=== PATIENT | female | born 1945 | race Caucasian/White ===

== ENCOUNTER 2025-02-21 12:20 | Outpatient (REF) | payer MEDICARE, SELFPAY ==
[2025-02-21 14:26] LABS: Vitamin B12 528 pg/mL (200-900)
--- OUTSIDE RECORDS SUMMARY | 2025-02-21 14:37 | XMS_ITS | Clinical Summary ---
Author Organization [facility] Address [address] [place] [address] Phone Care Team Providers Care Reed Repairer Name Role Phone Akanksha Florian MD Primary Care Provider [phone] Allergies Active Allergy Reactions Criticality Noted Date Comments Codeine High 12/02/2005 Nickel 06/08/2017 Sulfa (Sulfonamide Antibiotics) High 11/2005 Medications CYANOCOBALAMIN, VITAMIN B-12, ORAL Take by mouth. Active esomeprazole magnesium (NEXIUM ORAL) Take by mouth. Active OMEGA-3 FATTY ACIDS ORAL Take by mouth. Active rosuvastatin calcium (CRESTOR ORAL) Take 40 mg by mouth 1 (one) time each day. Active acetaminophen (TYLENOL) 325 mg tablet Take 2 tablets (650 mg total) by mouth every 6 (six) hours as needed for pain. Active cholecalciferol (VITAMIN D-3) 25 mcg (1,000 unit) tablet Take 1 tablet (1,000 Units total) by mouth daily. Active gabapentin (NEURONTIN) 300 mg capsule Take 1 capsule (300 mg total) by mouth 2 (two) times a day. 9 Active hydroCHLOROthia zide (HYDRODIURIL) 25 mg tablet Take 1 tablet (25 mg total) by mouth daily. Active levothyroxine (SYNTHROID, LEVOTHROID) 50 mcg tablet 8 Active coenzyme Q-10 10 mg capsule Take 1 tablet by mouth. Active memantine (NAMENDA) 10 mg tablet Take 1 tablet (10 mg total) by mouth 1 (one) time each day. Active celecoxib (CeleBREX) 100 mg capsule Take 1 capsule (100 mg total) by mouth 1 (one) time each day if needed for moderate pain. 90 capsule 1 5 Active celecoxib (CeleBREX) 100 mg capsule Take 1 capsule (100 mg total) by mouth 1 (one) time each day if needed for moderate pain. 8 01/31/20 25 Discontinu ed(Reorder ) Active Problems Problem Noted Date Diagnosed Date Primary osteoarthritis of both feet 01/14/2018 Primary osteoarthritis of both hands 01/14/2018 Hypothyroid 10/15/2017 Assessment & Plan (11/08/2024 5:52 PM EST): Orders: Thyroid stimulating hormone with reflex to free t4 and free t3; Future Malignant neoplasm of transv erse colon (CMS/HCC V24, CMS/HCC V28) 12/10/2015 Overview (01/04/2024): Overview: Colonoscopy and biopsy 12/10/2015. Adenocarcinoma, low-grade. (Desires small- volume bowel prep. Difficult sigmoid colon, consider monitored anesthesia care at the hospital.) Colonoscopy 03/10/2017@[facility]: Diminutive tubular adenomas ? 3 , next colonoscopy 3 years. Hip osteoarthritis 12/20/2012 Obesity 02/19/2011 Essential hypertension 08/08/2009 Allergic rhinitis 01/20/2006 Overview (01/04/2024): Overview: Desensitization shots in past Diffuse cystic mastopathy 01/20/2006 Overview (01/04/2024): Overview: Biopsy x 2 Pure hypercholesterolemia 12/02/2005 Assessment & Plan (11/08/2024 5:52 PM EST): Orders: Homocysteine, total; Future Thyroid stimulating hormone with reflex to free t4 and free t3; Future Hemoglobin A1c; Future Sensorineural hearing loss 12/02/2005 Overview (01/04/2024): Overview: IMO update Overview: IMO update Thyroiditis 12/02/2005 Encounters Date Type Department Care Team Description 01/05/2025 9:00 AM EST Office Visit Adult Medicine [address] [phone] Akanksha Florian MD Moderate late onset Alzheimer's dementia without behavioral disturbance, psychotic disturbance, mood disturbance, or anxiety (CMS/HCC V24, CMS/HCC V28) (Primary Dx); Essential hypertension; Pure hypercholesterolemia; Hypothyroidism, unspecified type; Vitamin D deficiency 12/27/2024 Telephone Adult [address] [phone] Akanksha Florian MD Medication; Appointment 11/24/2024 Telephone Adult [address] [phone] Shawn Henderson NP Referral from Last 3 Months Immunizations Name Administration Dates Next Due Cybits SARS-CoV-2 COVID-19, mRNA, LNP-S, preservative free 06/28/2021,01/01/2021,12/11/2020 Surgical History Surgery Date Site/Laterality Comments PARTIAL HYSTERECTOMY 1987 PROCEDURE: AL SUPRACERVICAL ABDL HYSTER W/WO RMVL TUBE OVARY; COMMENT: has ovaries OTHER SURGICAL HISTORY 1989 PROCEDURE: DECOMPRESS DISC RF LUMBAR; COMMENT: L5-S1, Dr. Miramontes x 2; 1989 and 1990 OTHER SURGICAL HISTORY 11/2001 PROCEDURE: BREAST MASS CORE BIOPSY SPCMN PATHOLGY EXAM; COMMENT: LEFT COLONOSCOPY 05/11/2005 PROCEDURE: HISTORICAL COLONOSCOPY; COMMENT: normal. BREAST LUMPECTOMY 2009 PROCEDURE: ---- BREAST LUMP BIOPSY ----; COMMENT: BENIGN COLONOSCOPY 12/10/2015 PROCEDURE: HISTORICAL COLONOSCOPY; COMMENT: Low-grade adenocarcinoma proximal transverse colon. COLONOSCOPY 03/10/2017 PROCEDURE: HISTORICAL COLONOSCOPY; COMMENT: Dr. [email or web address]; diminutive tubular adenoma ? 3 , next colonoscopy 3 years. TOTAL KNEE ARTHROPLASTY Left PROCEDURE: AL ARTHRP KNE CONDYLE&PLATU MEDIAL&LAT COMPARTMENTS OTHER SURGICAL HISTORY Right PROCEDURE: AL ARTHRP ACETBLR/PROX FEM PROSTC AGRFT/ALGRFT BREAST BIOPSY 1989 Bilateral PROCEDURE: BX BREAST; PERC NEEDLE CORE W/IMAG GUID; COMMENT: x6-7 BREAST SURGERY 1989 Bilateral PROCEDURE: AL UNLISTED PROCEDURE BREAST BOWEL RESECTION 01/16/2016 PROCEDURE: HISTORICAL BOWEL RESECTION; COMMENT: right hemicolectomy COLONOSCOPY 05/10/2020 PROCEDURE: HISTORICAL COLONOSCOPY; COMMENT: Diverticulosis, otherwise negative/incomplete to the sigmoid colon. UPPER GASTROINTESTINAL ENDOSCOPY 05/10/2020 PROCEDURE: AL UPPER GI ENDOSCOPY PERFORMED; COMMENT: Rico esophagitis, biopsies: rico. OTHER SURGICAL HISTORY 06/05/2020 PROCEDURE: COLOREC CANC SCRN,BARIUM ENEMA; COMMENT: negative. Medical History Medical History Date Comments Esophageal reflux DX:Esophageal reflux Pure hypercholesterolemia DX:Pur e hypercholesterolemia Thyroiditis, unspecified DX:Thyr oiditis, unspecified Sensorineural hearing loss, unspecified DX:Sensorineural hearing los s, unspecified Diffuse cystic mastopathy 01/20/2006 DX:Dif fuse cystic mastopathy; COMMENT: Biopsy x 2 Allergic rhinitis, cause unspecified 01/20/2006 DX:Allergic rhinitis, cause unspecified; COMMENT: Desensitization shots in past Lumbago 09/02/2006 DX:Lumbago Hip osteoarthritis DX:Hip osteoa rthritis Diverticulosis 12/10/2015 DX:Diverticulosi s; COMMENT: Incidental finding at colonoscopy 12/10/2015. Iron deficiency anemia 02/06/2016 DX:Iron d eficiency anemia Personal history of colonic polyps 03/31/2017 DX:Personal history of colonic polyps; COMMENT: Colonoscopy 03/10/2017: Diminutive tubular adenomas ? 3 , next colonoscopy 2019. History of colonoscopy 03/31/2017 DX:Histor y of colonoscopy; COMMENT: Difficult sigmoid colon, needs monitored anesthesia care. Tubular adenoma 04/05/2017 DX:Tubular adeno ma; COMMENT: CN 03/17, repeat 3 years Adenocarcinoma, colon (CMS/H CC V24, CMS/HCC V28) DX:Adenocarcinoma, colon (HC C); COMMENT: stabe IIIc pT3 pN2b; s/p oxaliplatin (3 cycles) and FLOFOX 02/25/2016-08/04/2016 History of malignant neoplas m of large intestine 2015 DX:History of malignant neop lasm of large intestine Candidiasis of esophagus (CM S/HCC V24, CMS/HCC V28) DX:Candidiasis of esophagus (HCC) History of colon cancer in adulthood DX:History of colon cancer in adulthood Family History Medical History Relation Name Comments Diabetes Brother Arthritis Father Arthritis Mother Diabetes Mother Breast cancer Other m cousins 30s 40s Arthritis Sister 1 Diabetes Sister 2 Heart attack Sister 2 Relation Name Status Comments Brother Alive 2 brothers 1 HE ALTHY; 1 MESOTHELIOMA Father (Age 92) VA-CHOL Maternal Grandfather old age Maternal Grandmother old age -GOITER Mother (Age 91) stroke-DM, ARTHRITIS, goiter Other m cousins 30s 40s Paternal Grandfather old age Paternal Grandmother old age Sister 1 Alive 3 sisters 3 Cho lesterol and 1 DM Sister 2 Social History Tobacco Use Types Packs/Day Years Used Date Smoking Tobacco: Former Cigarettes Q uit: 11/01/1987 Smokeless Tobacco: Never Tobacco Cessation:Counseling Given: Not Answered Alcohol Use Standard Drinks/Week Comments Yes 0 (1 standard drink = 0.6 oz pur e alcohol) Comments Unknown Sex and Gender Information Value Date Recorded Sex Assigned at Not on file Legal Sex Female 9:37 AM EST Gender Identity Not on file Sexual Orientation Not on file Obstetrics History Last Filed Vital Signs Vital Sign Reading Time Taken Comments Blood Pressure 136/72 01/05/2025 1:43 PM EST Pulse 78 01/05/2025 9:03 AM EST Temperature 36.3 ??C (97.3 ??F) 01/05/2025 9:03 AM ES T Respiratory Rate 14 01/05/2025 9:03 AM EST Oxygen Saturation 96% 01/05/2025 9:03 AM EST Inhaled Oxygen Concentration - - Weight 74.8 kg (165 lb) 01/05/2025 9:03 AM EST Height 157.5 cm (5' 2 ) 01/05/2025 9:03 AM EST Body Mass Index 30.18 01/05/2025 9:03 AM EST Plan of Treatment Upcoming Encounters Date Type Department Care Team (Late st Contact Info) Description 03/07/2025 2:00 PM EDT Office Visit Adult Medicine [address] [phone] Akanksha Florian MD [address] [place] [address] 04/16/2025 10:15 AM EDT Office Visit [facility] Hematology Oncology [address] [place] [phone] Joseph Devries MD [address] [place] [address] 04/18/2025 2:10 PM EDT Appointment Radiology Department - [address] [phone] Health Maintenance Due Date Last Done Comments Colorectal Cancer Screening: Colonoscopy 10/07/2022 Depression Screening 10/07/2022 Falls Risk Assessment 10/07/2022 Medicare Annual Wellness Visit 10/07/2022 Social Influencers of Health Screening 10/07/2022 DTaP,Tdap,and Td Vaccines (4 - Td or Tdap) 12/20/2022 12/20/2012, 10/07/2006, 11/01/1996 COVID-19 Vaccine ( season) 2024 07/16/2022, 04/15/2022, 06/28/2021, Additional history exists Influenza Vaccine (Season Ended) 2025 08/15/2020, 07/02/2020, 08/25/2019, Additional history exists Hypertension/CHF/CAD Annual BMP Blood Test 11/08/2025 11/08/2024, 03/09/2024 Cholesterol Screening (Lipid Panel) 03/09/2029 03/09/2024 Osteoporosis Screening (Bone Density Screening) 05/02/2031 05/02/2021, 09/02/2017 Pneumococcal Vaccine: 50+ Years Completed 01/18/2016, 01/17/2016, 02/25/2010 Zoster Vaccines Completed 08/01/2020, 05/02, 03/01/2020, Additional history exists RSV Immunization Adult Patients Completed 10/02/2023 HIB Vaccines Aged Out No longer eligi ble based on patient's age to complete this topic HPV Vaccines Aged Out No longer eligi ble based on patient's age to complete this topic Hepatitis A Vaccines Aged Out No long er eligible based on patient's age to complete this topic Hepatitis B Vaccines Aged Out No long er eligible based on patient's age to complete this topic IPV Vaccines Aged Out No longer eligi ble based on patient's age to complete this topic MMR Vaccines Aged Out No longer eligi ble based on patient's age to complete this topic Meningococcal ACWY Vaccine Aged Out N o longer eligible based on patient's age to complete this topic Meningococcal B Vaccine Aged Out No l onger eligible based on patient's age to complete this topic RSV Immunization Patients Under 20 months Aged Out No longer eligible based on patient's age to complete this topic Varicella Vaccines Aged Out No longer eligible based on patient's age to complete this topic Procedures Procedure Name Priority Date/Time Associated Diagnosis Comments COMPREHENSIVE METABOLIC PANEL Routine 11/08/2024 12:46 PM EST Moderate cognitive impairment Memory changes History of colon cancer DXA BONE DENSITY STUDY 1+ SITS AXIAL SKEL Routine 05/02/2021 9:44 AM EDT Age-related osteoporosis without current pathological fracture from Last 3 Months or Most Recently Relevant to Health Maintenance Results * (ABNORMAL) Comprehensive metabolic panel (11/08/2024 12:46 PM EST) Sodium 138 133 - 145 mmol/L LAB CHEMISTRY METHOD 11/08/2024 5:30 PM [facility] Potassium 3.5 3.5 - 5.5 mmol/L LAB CHEMISTRY METHOD 11/08/2024 5:30 PM [facility] Chloride 103 96 - 110 mmol/L LAB CHEMISTRY METHOD 11/08/2024 5:30 PM [facility] CO2 26 21 - 32 mmol/L LAB CHEMISTRY METHOD 11/08/2024 5:30 PM [facility] Anion Gap 9 3 - 11 LAB CHEMISTRY METHOD 11/08/2024 5:30 PM [facility] Glucose 97 70 - 100 mg/dL LAB CHEMISTRY METHOD 11/08/2024 5:30 PM [facility] BUN 21 5 - 25 mg/dL LAB CHEMISTRY METHOD 11/08/2024 5:30 PM [facility] Creatinine 0.90 0.50 - 1.10 mg/dL LAB CHEMISTRY METHOD 11/08/2024 5:30 PM [facility] eGFR 65 >=60 mL/min/1. 73m2 LAB CHEMISTRY METHOD 11/08/2024 5:30 PM [facility] Comment:Calculation based on the??Chronic Kidney Disease Epidemiology Collaboration (CKD-EPI) equation refit??without adjustment for race. BUN/Creatinine Ratio 23.3 LAB CHEMISTRY METHOD 11/08/2024 5:30 PM [facility] Calcium 9.6 8.5 - 10.5 mg/dL LAB CHEMISTRY METHOD 11/08/2024 5:30 PM [facility] AST (SGOT) 31 10 - 42 unit/L LAB CHEMISTRY METHOD 11/08/2024 5:30 PM [facility] ALT (SGPT) 36 10 - 60 unit/L LAB CHEMISTRY METHOD 11/08/2024 5:30 PM [facility] Alkaline Phosphatase 130(H) 42 - 121 unit/L LAB CHEMISTRY METHOD 11/08/2024 5:30 PM [facility] Total Protein 7.3 6.0 - 8.0 g/dL LAB CHEMISTRY METHOD 11/08/2024 5:30 PM [facility] Albumin 4.3 3.2 - 5.0 g/dL LAB CHEMISTRY METHOD 11/08/2024 5:30 PM [facility] Total Bilirubin 0.8 0.0 - 1.4 mg/dL LAB CHEMISTRY METHOD 11/08/2024 5:30 PM [facility] Blood Venous blood specimen / Unknown Venipuncture / Unknown 11/08/2024 12:46 PM EST 11/08/2024 12:46 PM EST us Shawn Henderson NP LAB BLOOD ORDERABLES Final R esult [facility] [address] [place] [address], * DXA BONE DENSITY STUDY Mario+ FABIO RENE (05/02/2021 9:44 AM EDT) Anatomical Region Laterality Modality Bone Densitometr y 11/06/2020 5:57 PM EST Narrative 05/02/2021 5:08 PM EDT Clinical history: osteoporosis Scans of the lumbar spine and hips were performed on a [employer]ision fan beam bone densitometer. ? Bone mineral density measurements and associated T and Z scores respectively are as follows: Lumbar Spine: L1-L4 BMD: 1.032 g/cm2 ? T-Score: -0.1 ? Z-Score: 2.3 Compared with the prior study dated 09/02/2017, the BMD reading has increased which is statistically significant Left Proximal Femur: Neck BMD: 0.593 g/cm2 ? T-Score: -2.3 ?? Z-Score: -0.2 Total BMD: 0.742 g/cm2 ? T-Score: -1.6 ?Z-Score: 0.2 Compared with the prior study the mean BMD reading in the total left hip has increased which is not statistically significant Compared with standards for the young adult, lowest measured bone density places the patient in the W.H.O. osteopenic range. FRAX 10 year probability of major osteoporotic fracture: 15% FRAX 10 year probability of hip fracture: 4.2% IMPRESSION: IMPRESSION: Osteopenia.. . ?? The NOF guidelines recommend that FDA approved medical therapies be considered in postmenopausal women and men age >50 years with a: i. Hip or vertebral (clinical or morphometric) fracture ii. T score of < -2.5 at the spine or hip iii. 10 year fracture probability by FRAX of >3% for hip fracture, or >20% for major osteoporotic fracture PLEASE NOTE: ?? W.H.O. classification is based on lowest measured density at the spine, femoral neck, or total hip.This classification has prognostic significance when applied to post menopausal women and older men. 1) ??The World Health Organization defines low BMD as follows: ?T-score ? Normal ? at or > -1 Osteopenia ? < -1 and ??> - 2.5 Osteoporosis ? at or < -2.5 without fractures Established osteoporosis ? < -2.5 with fractures Procedure Note Adilene Phoenix MD - 11/05/2022 Clinical history: osteoporosis Scans of the lumbar spine and hips were performed on a [employer]/Z[employer]isionfan beam bone densitometer. Bone mineral density measurements and associated T and Z scoresrespectively are as follows: Lumbar Spine: L1-L4 BMD: 1.032 g/cm2 T-Score: -0.1 Z-Score: 2.3 Compared with the prior study dated 09/02/2017, the BMD reading hasincreased which is statistically significant Left Proximal Femur: Neck BMD: 0.593 g/cm2 T-Score: -2.3 Z-Score: -0.2 Total BMD: 0.742 g/cm2 T-Score: -1.6 Z-Score: 0.2 Compared with the prior study the mean BMD reading in the total left hiphas increased which is not statistically significant Compared with standards for the young adult, lowest measured bone densityplaces the patient in the W.H.O. osteopenic range. FRAX 10 year probability of major osteoporotic fracture: 15% FRAX 10 year probability of hip fracture: 4.2% IMPRESSION: IMPRESSION: Osteopenia.. . The NOF guidelines recommend that FDA approved medical therapies beconsidered in postmenopausal women and men age >50 years with a: i. Hip or vertebral (clinical or morphometric) fracture ii. T score of < -2.5 at the spine or hip iii. 10 year fracture probability by FRAX of >3% for hip fracture, or >20%for major osteoporotic fracture PLEASE NOTE: W.H.O. classification is based on lowest measured density at the spine,femoral neck, or total hip.This classification has prognostic significance when applied to postmenopausal women and older men. 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 Health Care Decision (hx) 01/21/2016 AD APPIAH DIRECTIVE Health Care Decision (hx) 01/21/2016 AD APPIAH DIRECTIVE Health Care Decision (hx) 01/21/2016 AD APPIAH DIRECTIVE Health Care Decision (hx) 01/21/2016 AD APPIAH DIRECTIVE Health Care Decision (hx) 01/21/2016 AD APPIAH DIRECTIVE Health Care Decision (hx) 01/21/2016 AD APPIAH DIRECTIVE Health Care Decision (hx) 01/21/2016 AD APPIAH DIRECTIVE Health Care Decision (hx) 01/21/2016 AD APPIAH DIRECTIVE Health Care Decision (hx) 01/21/2016 AD APPIAH DIRECTIVE Health Care Decision (hx) 01/21/2016 AD APPIAH DIRECTIVE Health Care Decision (hx) 01/21/2016 AD APPIAH DIRECTIVE Health Care Decision (hx) 01/21/2016 AD APPIAH DIRECTIVE Health Care Decision (hx) 01/16/2016 AD APPIAH DIRECTIVE Health Care Decision (hx) 01/16/2016 AD APPIAH DIRECTIVE Health Care Decision (hx) 01/16/2016 AD APPIAH DIRECTIVE Health Care Decision (hx) 01/16/2016 AD APPIAH DIRECTIVE Health Care Decision (hx) 01/16/2016 AD APPIAH DIRECTIVE Health Care Decision (hx) 01/16/2016 AD APPIAH DIRECTIVE Health Care Decision (hx) 01/16/2016 AD APPIAH DIRECTIVE Health Care Decision (hx) 01/16/2016 AD APPIAH DIRECTIVE Health Care Decision (hx) 01/16/2016 AD APPIAH DIRECTIVE Health Care Decision (hx) 01/16/2016 AD APPIAH DIRECTIVE Health Care Decision (hx) 01/16/2016 AD APPIAH DIRECTIVE Health Care Decision (hx) 01/16/2016 AD APPIAH DIRECTIVE Care Teams Reed Repairer Relationship Specialty Start Date End Date Akanksha Florian MD [address] [place] [id number] PCP - General 03/30/24
--- OUTSIDE RECORDS SUMMARY | 2025-02-21 14:37 | XMS_ITS | Clinical Summary ---
Author Organization [facility] Address [address] [place] [address] Care Team Providers Care Day Worker Name Role Phone Akanksha Florian MD Primary Care Provider [phone] Allergies Active Allergy Reactions Criticality Noted Date Comments Codeine High 12/02/2005 Nickel 06/08/2017 Sulfa Antibiotics High 12/02/2005 Medications Medication Sig Dispensed Refills Start Date End Date Status hydrochlorothiazide (HYDRODIURIL) tablet 25 mg Take 1 tablet (25 mg total) by mouth daily. 0 Active acetaminophen (TYLENOL) 325 MG tablet Take 2 tablets (650 mg total) by mouth every 6 (six) hours as needed for pain. 0 Active amitriptyline (ELAVIL) 10 MG tablet Take 1 tablet (10 mg total) by mouth every night at bedtime. 0 Active Cyanocobalamin (VITAMIN B-12 PO) Take by mouth. 0 Act calixto DiphenhydrAMINE HCl (BENADRYL PO) Take by mouth. 0 Active aspirin 81 MG chewable tablet Chew 1 tablet (81 mg total) by mouth daily. 0 Active CALCIUM PO Take by mouth. 0 Active cholecalciferol (VITAMIN D3) 1000 UNITS tablet Take 1 tablet (1,000 Units total) by mouth daily. 0 Active Fajardo-3 Fatty Acids (OMEGA 3 PO) Take by mouth. 0 Active Esomeprazole Magnesium (NEXIUM PO) Take by mouth. 0 Active Rosuvastatin Calcium (CRESTOR PO) Take by mouth. 0 Active levothyroxine (SYNTHROID, LEVOXYL) tablet 50 mcg 0 01/09/2018 Active celecoxib (CELEBREX) 100 MG capsule 0 01/25/2018 Active PROAIR HFA 108 (90 Base) MCG/ACT inhaler inhale 2 puffs by mouth every 4 hours if needed for cough 0 12/13/2017 Active gabapentin (NEURONTIN) 300 MG capsule Take 2 capsules (600 mg total) by mouth 3 (three) times a day. 180 capsule 11 02/01/2019 Active Coenzyme Q10 10 MG capsule Take 1 tablet by mouth. 0 Active diclofenac (VOLTAREN) 25 MG EC tablet Take 1 tablet (25 mg total) by mouth 3 (three) times a day. 0 Active Active Problems Problem Noted Date Diagnosed Date Primary osteoarthritis of both feet 01/14/2018 Primary osteoarthritis of both hands 01/14/2018 Hypothyroid 10/15/2017 History of colonic polyps 03/31/2017 Overview: Overview: Colonoscopy 03/10/2017: Diminutive tubular adenomas ? 3 , next colonoscopy 2019. History of colonoscopy 03/31/2017 Overview: Overview: Difficult sigmoid colon, needs monitored anesthesia care. Malignant neoplasm of transverse colon Overview: Overview: Colonoscopy and biopsy 12/10/2015. Adenocarcinoma, low-grade. (Desires small- volume bowel prep. Difficult sigmoid colon, consider monitored anesthesia care at the hospital.) Colonoscopy 03/10/2017@[facility]: Diminutive tubular adenomas ? 3 , next colonoscopy 3 years. Hip osteoarthritis 12/20/2012 Obesity 02/19/2011 Essential hypertension 08/08/2009 Diffuse cystic mastopathy 01/20/2006 Overview: Overview: Biopsy x 2 Allergic rhinitis 01/20/2006 Overview: Overview: Desensitization shots in past Sensorineural hearing loss 12/02/2005 Overview: Overview: O update Overview: O update Pure hypercholesterolemia 12/02/2005 Thyroiditis 12/02/2005 Immunizations Name Administration Dates Next Due Covid-19 (Pfizer) Dilution Required 06/28/2021 Family History Medical History Relation Name Comments Diabetes Brother 1 Hypertension Brother 1 Diabetes Brother 2 Hypertension Brother 2 Diabetes Maternal Grandmother Diabetes Mother Diabetes Sister 1 Hypertension Sister 1 Diabetes Sister 2 Heart attack Sister 2 Hypertension Sister 2 Relation Name Status Comments Brother 1 Alive Brother 2 Alive Father Maternal Grandmother Mother Sister 1 Alive Sister 2 Social History Tobacco Use Types Packs/Day Years Used Date Smoking Tobacco: Former Smokeless Tobacco: Never Alcohol Use Standard Drinks/Week Comments Yes 0 (1 standard drink = 0.6 oz pur e alcohol) socially Sex and Gender Information Value Date Recorded Sex Assigned at Not on file Gender Identity Not on file Sexual Orientation Not on file Job Start Date Occupation Industry Not on file Not on file Not on file Last Filed Vital Signs Vital Sign Reading Time Taken Comments Blood Pressure 133/66 03/30/2024 10:39 AM EDT Pulse 59 03/30/2024 10:39 AM EDT Temperature 36.7 ??C (98 ??F) 03/30/2024 10:39 AM EDT Respiratory Rate - - Oxygen Saturation 98% 03/30/2024 10:39 AM EDT Inhaled Oxygen Concentration - - Weight 76.7 kg (169 lb 3.2 oz) 03/30/2024 10:39 AM EDT Height 157.5 cm (5' 2 ) 03/31/2023 11:17 AM EDT Body Mass Index 30.95 03/31/2023 11:17 AM EDT Plan of Treatment Health Maintenance Due Date Last Done Comments Depression Screening 1957 BMI Counseling 1963 Preventative Health Evaluation 1963 Fall Risk Assessment 2010 Osteoporosis Screening (DEXA Scan) 2010 RSV Adult > 60+ Yrs or (1 - 1-dose 75+ series) 01/13/2020 DTap / Tdap / Td (2 - Td or Tdap) 12/20/2022 12/20/2012 COVID-19 Vaccine ( season) 2024 06/28/2021, 01/01/2021, 12/11/2020 Influenza Vaccine (#1) 2024 0, 08/25/2019, 09/01/2018, Additional history exists Pneumococcal Vaccine Completed 01/18/2016, 02/26/20 10 Shingrix-Zoster Vaccine Completed 08/01/2020, 03/01 Hepatitis B Vaccines Aged Out No long er eligible based on patient's age to complete this topic RSV Ped < 20 months Aged Out No longe r eligible based on patient's age to complete this topic Care Teams Day Worker Relationship Specialty Start Date End Date Akanksha Florian MD [address] [place] [address] PCP - General Internal Medicine 03/30/24
== END 2025-02-21 12:21 | disposition home or self-care (01) ==
LOC: HO.LAB 12:20
PROVIDERS: PCP Internal Medicine; Visit Provider Psychiatry & Neurology Neurology
DX: G30.9 Alzheimer's disease, unspecified (principal)
CPT/HCPCS: 36415; 82607

== ENCOUNTER 2025-05-08 12:06 | Outpatient (AMB) | payer MEDICARE, SELFPAY ==
--- NOTE | 2025-05-08 12:01 | MHC.OFFVIS ---
Intake Visit Reasons: 2m AD Allergies codeine Allergy (Verified 05/08/25 09:23) Unknown nickel Allergy (Verified 05/08/25 09:23) Unknown sulfur dioxide Allergy (Verified 05/08/25 09:23) Unknown Medication List - Last Reconciled 05/08/25 by Sherwin Reis MD celecoxib 100 mg PO DAILY PRN coenzyme Q10 30 mg PO DAILY donepezil 10 mg PO BEDTIME esomeprazole magnesium 40 mg PO DAILY hydrochlorothiazide 25 mg PO DAILY levothyroxine 50 mcg PO DAILY memantine (Namenda) 10 mg PO BID rosuvastatin 40 mg PO DAILY sertraline 25 mg PO QAM HPI Comments Details: 80 years old woman with dementia with symptom initially noted around 2022. She was living with a and did not have any children. Major complaints for forgetfulness and word-finding difficulties. Initially there was no significant anxiety or behavioral symptomatology. There was no history of alcohol abuse or head injury. She was feeling better on present regimen. No side effects. She has ear wax and she was trying to have an ENT consultation. [facility] Medical History (Updated 05/08/25 @ 12:15 by Sherwin Reis MD) Arthritis Hypertension GERD (gastroesophageal reflux disease) Hypothyroidism Alzheimer's dementia Review of Systems Const Details: Constitutional:?No fever, chills, fatigue, weight loss, or night sweats. HEENT:?No headache, vision changes, hearing loss, nasal congestion, sore throat. Neurological:? Complain of forgetfulness and word-finding difficulties Psychiatric:?No anxiety, depression, mood swings, sleep disturbance, or hallucinations. Endocrine:?No heat/cold intolerance, polydipsia, polyuria, or hair/skin changes. Hematologic/Lymphatic:?No easy bruising, bleeding, or lymphadenopathy. Integumentary (Skin):?No rash, lesions, itching, or color changes. ? Physical Exam Neuro Other: Mental Status: Alert and awake and cooperative. Cranial Nerves: CN II: Visual bhatia full to confrontation, visual acuity intact. CN III, IV, : Pupils equal, round, reactive to light and accommodation. Extraocular movements are normal. CN V: Facial sensation is normal. CN VII: Facial movements symmetrical. CN VIII: Hearing intact to bedside conversation is normal. CN IX, X: Palate elevates symmetrically. CN XI: Shoulder shrug and head turn symmetrical. CN XII: Tongue midline without atrophy or fasciculations. Coordination: [id number] and [id number] testing normal. No dysmetria. Gait and Station: No obvious gait abnormality. No ataxia or instability. Sensory: Intact to light touch, pinprick, and vibration. Romberg is negative. Extrapyramidal: Full facial expressions and blinking. No rigidity. Movements are appropriate with no tremor or abnormality. Speech: Normal; no dysarthria or tremor. Assessment & Plan Assessment & Plan (1) Alzheimer's dementia: Comment: MRI brain WO at [place] in Nov 2024: Mod atrophy suggestive of AD, minimal MVD Code(s): G30.9 - Alzheimer's disease, unspecified; F02.80 - Dementia in other diseases classified elsewhere, unspecified severity, without behavioral disturbance, psychotic disturbance, mood disturbance, and anxiety Category: Medical Qualifiers: Alzheimer's disease onset: late onset Dementia severity: mild Dementia behavioral or psychological symptom: without behavioral, psychotic, or mood disturbance or anxiety Qualified Code(s): G30.1 - Alzheimer's disease with late onset; F02.A0 - Dementia in other diseases classified elsewhere, mild, without behavioral disturbance, psychotic disturbance, mood disturbance, and anxiety (2) Decreased hearing of both ears: Code(s): H91.93 - Unspecified hearing loss, bilateral Category: Medical Plan Mild to moderate Alzheimer dementia Rec: a. Continue donepezil 10 mg a day and b. Continue memantine 10 mg twice a day c. Continue sertraline 25 mg in the morning Medications: New sertraline 25 mg PO QAM 90 tabs 0RF donepezil 10 mg PO BEDTIME 90 tabs 1RF memantine (Namenda) 10 mg PO BID 180 tabs 1RF Coding Level of Care Code Tele Est Pt Level 4 (55416) Diagnoses Mild late onset Alzheimer's dementia without behavioral disturbance, psychotic disturbance, mood disturbance, or anxiety G30.1; F02.A0 Alzheimer's disease onset: late onset Dementia severity: mild Dementia behavioral or psychological symptom: without behavioral, psychotic, or mood disturbance or anxiety Decreased hearing of both ears H91.93
--- OUTSIDE RECORDS SUMMARY | 2025-05-08 12:56 | XMS_ITS | Clinical Summary ---
Author Organization [facility] Address [address] [place] [address] Phone Care Team Providers Care Violin Repairer Name Role Phone Akanksha Florian MD Primary Care Provider [phone] Allergies Active Allergy Reactions Criticality Noted Date Comments Codeine High 12/02/2005 Nickel 06/08/2017 Sulfa (Sulfonamide Antibiotics) High 11/2005 Medications CYANOCOBALAMIN, VITAMIN B-12, ORAL Take by mouth. Active esomeprazole magnesium (NEXIUM ORAL) Take by mouth. Active OMEGA-3 FATTY ACIDS ORAL Take by mouth. Active acetaminophen (TYLENOL) 325 mg tablet Take 2 tablets (650 mg total) by mouth every 6 (six) hours as needed for pain. Active cholecalciferol (VITAMIN D-3) 25 mcg (1,000 unit) tablet Take 1 tablet (1,000 Units total) by mouth daily. Active coenzyme Q-10 10 mg capsule Take 1 tablet by mouth. Active celecoxib (CeleBREX) 100 mg capsule Take 1 capsule (100 mg total) by mouth 1 (one) time each day if needed for moderate pain. 90 capsule 1 5 Active rosuvastatin (Crestor) 40 mg tablet Take 1 tablet (40 mg total) by mouth 1 (one) time each day. 90 tablet 1 5 Active donepeziL (ARICEPT) 10 mg tablet Take 1 tablet (10 mg total) by mouth at bedtime. 5 Active sertraline (ZOLOFT) 25 mg tablet Take 1 tablet (25 mg total) by mouth 1 (one) time each day. 5 Active levothyroxine (SYNTHROID, LEVOTHROID) 50 mcg tablet Take 1 tablet (50 mcg total) by mouth 1 (one) time each day before breakfast. 90 tablet 1 5 Active hydroCHLOROthia zide (HYDRODIURIL) 25 mg tablet Take 1 tablet (25 mg total) by mouth 1 (one) time each day. 90 tablet 1 5 Active hydroCHLOROthia zide (HYDRODIURIL) 25 mg tablet Take 1 tablet (25 mg total) by mouth daily. 04/25/20 25 Discontinu ed(Reorder ) Active Problems Problem [...] the hospital.) Colonoscopy 03/10/2017@[facility]: Diminutive tubular adenomas 3, next colonoscopy 3 years. Hip osteoarthritis 12/20/2012 [...] 12/02/2005 Overview (01/04/2024): Overview: IMO update Overview: [facility] update Thyroiditis 12/02/2005 Encounters Date Type Department Care Team Description 03/28/2025 10:00 AM EDT Office Visit Adult Medicine [address] [phone] Nevin Bahena PA Hypokalemia (Primary Dx); Essential hypertension; Moderate late onset Alzheimer's dementia without behavioral disturbance, psychotic disturbance, mood disturbance, or anxiety (CMS/[facility] V24, CMS/[facility] V28) 03/08/2025 Telephone Adult Medicine [address] [phone] Cely Murphy RN from Last 3 Months Immunizations Name Administration Dates Next Due Pfizer SARS-CoV-2 COVID-19, mRNA, LNP-S, preservative free 06/28/2021,01/01/2021,12/11/2020 Surgical History Surgery Date Site/Laterality Comments PARTIAL HYSTERECTOMY 1987 PROCEDURE: MT SUPRACERVICAL ABDL HYSTER W/WO RMVL TUBE OVARY; [...] COLONOSCOPY 03/10/2017 PROCEDURE: HISTORICAL COLONOSCOPY; COMMENT: [email or web address]. [email or web address]; diminutive tubular adenoma 3, next colonoscopy 3 years. TOTAL KNEE ARTHROPLASTY Left PROCEDURE: MT ARTHRP KNE CONDYLE&PLATU MEDIAL&LAT COMPARTMENTS OTHER SURGICAL HISTORY Right PROCEDURE: MT ARTHRP ACETBLR/PROX FEM PROSTC AGRFT/ALGRFT BREAST BIOPSY 1989 Bilateral PROCEDURE: BX BREAST; PERC NEEDLE CORE W/IMAG GUID; COMMENT: x6-7 BREAST SURGERY 1989 Bilateral PROCEDURE: MT UNLISTED PROCEDURE BREAST BOWEL RESECTION 01/16/2016 PROCEDURE: HISTORICAL BOWEL RESECTION; COMMENT: right hemicolectomy COLONOSCOPY 05/10/2020 PROCEDURE: HISTORICAL COLONOSCOPY; COMMENT: Diverticulosis, otherwise negative/incomplete to the sigmoid colon. UPPER GASTROINTESTINAL ENDOSCOPY 05/10/2020 PROCEDURE: MT UPPER GI ENDOSCOPY PERFORMED; COMMENT: Rico esophagitis, [...] polyps; COMMENT: Colonoscopy 03/10/2017: Diminutive tubular adenomas 3, next colonoscopy 2019. History of colonoscopy 03/31/2017 [...] HE ALTHY; 1 MESOTHELIOMA Father (Age 92) FL-CHOL Maternal Grandfather old age Maternal Grandmother old [...] Sign Reading Time Taken Comments Blood Pressure 130/70 03/28/2025 10:07 AM EDT Pulse 70 03/28/2025 10:07 AM EDT Temperature 36.5 C (97.7 F) 03/28/2025 10:07 AM EDT Respiratory Rate 12 03/28/2025 10:07 AM EDT Oxygen Saturation 96% 01/05/2025 9:03 AM EST Inhaled Oxygen Concentration - - Weight 70.8 kg (156 lb 1.6 oz) 03/28/2025 10:07 AM EDT Height 156.8 cm (5' 1.75 ) 03/28/2025 10:07 AM E DT Body Mass Index 28.78 03/28/2025 10:07 AM EDT Plan of Treatment Upcoming Encounters Date Type Department Care Team (Late st Contact Info) Description 05/09/2025 1:30 PM EDT Office Visit Adult Medicine [address] [phone] Akanksha Florian MD [address] [place] [address] Health Maintenance Due Date Last Done Comments Colorectal Cancer Screening: Colonoscopy 10/07/2022 Falls Risk Assessment 10/07/2022 Medicare Annual Wellness Visit 10/07/2022 Social Influencers of Health Screening 10/07/2022 DTaP,Tdap,and Td Vaccines (4 - Td or Tdap) 12/20/2022 12/20/2012, 10/07/2006, 11/01/1996 COVID-19 Vaccine ( season) 2024 07/16/2022, 04/15/2022, 06/28/2021, Additional history exists Influenza Vaccine (#1) 2025 , 07/02/2020, 08/25/2019, Additional history exists Hypertension/CHF/CAD Annual BMP Blood Test 03/28/2026 03/28/2025, 03/15/2025, 03/06/2025, Additional history exists Depression Screening 05/03/2026 05/03/2025 Cholesterol Screening (Lipid Panel) 03/06/2030 03/06/2025, 03/09/2024 Osteoporosis Screening (Bone Density Screening) 05/02/2031 [...] Procedure Name Priority Date/Time Associated Diagnosis Comments BASIC METABOLIC PANEL Routine 03/28/2025 11:48 AM EDT Hypokalemia BASIC METABOLIC PANEL Routine 03/15/2025 12:51 PM EDT Hypokalemia CBC WITH AUTO DIFFERENTIAL Routine 03/06/2025 2:12 PM EDT Essential hypertension LIPID PANEL WITH REFLEX TO DIRECT LDL Routine 03/06/2025 2:12 PM EDT Essential hypertension COMPREHENSIVE METABOLIC PANEL Routine 03/06/2025 2:12 PM EDT Essential hypertension CBC AND DIFFERENTIAL Routine 03/06/2025 2:12 PM EDT Essential hypertension VITAMIN B12 Routine 03/06/2025 2:12 PM EDT Moderate late onset Alzheimer's dementia without behavioral disturbance, psychotic disturbance, mood disturbance, or anxiety (CMS/HCC V24, CMS/HCC V28) VITAMIN D 25 HYDROXY Routine 03/06/2025 2:12 PM EDT Vitamin D deficiency THYROID STIMULATING HORMONE WITH REFLEX TO FREE T4 AND FREE T3 Routine 03/06/2025 2:12 PM EDT Hypothyroidism, unspecified type DXA BONE DENSITY STUDY 1+ SITS AXIAL SKEL Routine 05/02/2021 9:44 AM EDT Age-related osteoporosis without current pathological fracture from Last 3 Months or Most Recently Relevant to Health Maintenance Results * (ABNORMAL) Basic metabolic panel (03/28/2025 11:48 AM EDT) Only the most recent of2 resultswithin the time period is included. Sodium 139 133 - 145 mmol/L LAB CHEMISTRY METHOD 03/28[facility]2025 6:[facility] Potassium 3.9 3.5 - 5.5 mmol/L LAB CHEMISTRY METHOD 03/28/2025 6:12 PM [facility] Chloride 105 96 - 110 mmol/L LAB CHEMISTRY METHOD 03/28/2025 6:12 PM [facility] CO2 29 21 - 32 mmol/L LAB CHEMISTRY METHOD 03/28/2025 6:12 PM [facility] Anion Gap 5 3 - 11 LAB CHEMISTRY METHOD 03/28/2025 6:12 PM [facility] Glucose 106(H) 70 - 100 mg/dL LAB CHEMISTRY METHOD 03/28/2025 6:12 PM [facility] BUN 13 5 - 25 mg/dL LAB CHEMISTRY METHOD 03/28/2025 6:12 PM [facility] Creatinine 0.69 0.50 - 1.10 mg/dL LAB CHEMISTRY METHOD 03/28/2025 6:12 PM [facility] eGFR 88 >=60 mL/min/1. 73m2 LAB CHEMISTRY METHOD 03/28/2025 6:12 PM [facility] Comment:Calculation based on the Chronic Kidney Disease Epidemiology Collaboration (CKD-EPI) equation refit without adjustment for race. BUN/Creatinine Ratio 18.8 LAB CHEMISTRY METHOD 03/28/2025 6:12 PM [facility] Calcium 9.9 8.5 - 10.5 mg/dL LAB CHEMISTRY METHOD 03/28/2025 6:12 PM [facility] Blood Venous blood specimen / Unknown Venipuncture / Unknown 03/28/2025 11:48 AM EDT 03/28/2025 11:48 AM EDT us Nevin BUCKLEY LAB BLOOD ORDERABLES Final Res ult [facility] [address] [place] [address], [place] [phone] * Thyroid stimulating hormone with reflex to free t4 and free t3 (03/06/2025 2:12 PM EDT) [facility] TSH 0.89 0.40 - 4.00 mcIU/mL LAB CHEMISTRY METHOD 03/06/2025 7:37 PM EDT [facility] Blood Venous blood specimen / Unknown Venipuncture / Unknown 03/06/2025 2:12 PM EDT 03/06/2025 2:12 PM EDT us Akanksha Florian MD LAB BLOOD ORDERABLES Final Resul t [facility] [address] [place] [address], [place] [phone] * (ABNORMAL) Lipid panel with reflex to direct LDL (03/06/2025 2:12 PM EDT) [facility] Cholesterol 129 0 - 200 mg/dL LAB CHEMISTRY METHOD 03/06/2025 4:55 PM EDT [facility] Triglycerides 227(H) 0 - 150 mg/dL LAB CHEMISTRY METHOD 03/06/2025 4:55 PM T [facility] HDL 49 >=40 mg/dL LAB CHEMISTRY METHOD 03/06/2025 4:55 PM EDT [facility] LDL Calculated 35 0 - 100 mg/dL LAB CHEMISTRY METHOD 03/06/2025 4:55 PM T [facility] VLDL Cholesterol Inderjit 45.4 mg/dL LAB CHEMISTRY METHOD 03/06/2025 4:55 PM EDT [facility] Non HDL Chol. (LDL+VLDL) 80 <145 mg/dL LAB CHEMISTRY METHOD 03/06/2025 4:55 PM EDT [facility] Chol/HDL Ratio 2.6 0.0 - 4.4 LAB CHEMISTRY METHOD 03/06/2025 4:55 PM T [facility] Blood Venous blood specimen / Unknown Venipuncture / Unknown 03/06/2025 2:12 PM EDT 03/06/2025 2:12 PM EDT us Akanksha Florian MD LAB BLOOD ORDERABLES Final Resul t [facility] [address] [place] [address], * (ABNORMAL) CBC auto differential (03/06/2025 2:12 PM EDT) WBC 15.8(H) 4.8 - 10.8 K/mcL LAB HEMETOLOGY METHOD 03/06/2025 4:41 PM EDT [facility] RBC 4.70 3.80 - 4.80 M/mcL LAB HEMETOLOGY METHOD 03/06/2025 4:41 PM EDT [facility] Hemoglobin 13.8 11.5 - 16.0 g/dL LAB HEMETOLOGY METHOD 03/06/2025 4:41 PM EDT [facility] Hematocrit 41.9 35.0 - 47.0 % LAB HEMETOLOGY METHOD 03/06/2025 4:41 PM EDT [facility] MCV 88.4 79.0 - 98.0 FL LAB HEMETOLOGY METHOD 03/06/2025 4:41 PM EDT [facility] MCH 29.1 27.0 - 32.0 pcg LAB HEMETOLOGY METHOD 03/06/2025 4:41 PM EDT [facility] MCHC 32.9 32.0 - 37.0 g/dL LAB HEMETOLOGY METHOD 03/06/2025 4:41 PM [facility] RDW 12.5 11.0 - 15.0 % LAB HEMETOLOGY METHOD 03/06/2025 4:41 PM EDT [facility] Platelets 378 130 - 400 K/mcL LAB HEMETOLOGY METHOD 03/06/2025 4:41 PM [facility] MPV 10.7 7.0 - 11.0 FL LAB HEMETOLOGY METHOD 03/06/2025 4:41 PM [facility] NRBC 0.0 <1.0 % LAB HEMETOLOGY METHOD 03/06/2025 4:41 PM [facility] NRBC Absolute 0.00 <0.10 K/[facility] LAB HEMETOLOGY METHOD 03/06/2025 4:41 PM [facility] Neutrophils Relative 65.9 % LAB HEMETOLOGY METHOD 03/06/2025 4:41 PM [facility] Lymphocytes Relative 24.7 % LAB HEMETOLOGY METHOD 03/06/2025 4:41 PM [facility] Monocytes Relative 7.4 % LAB HEMETOLOGY METHOD 03/06/2025 4:41 PM [facility] Eosinophils Relative 1.3 % LAB HEMETOLOGY METHOD 03/06/2025 4:41 PM [facility] Basophils Relative 0.4 % LAB HEMETOLOGY METHOD 03/06/2025 4:41 PM [facility] Immature Granulocytes Relative 0.3 % LAB HEMETOLOGY METHOD 03/06/2025 4:41 PM [facility] Neutrophils Absolute 10.43(H) 1.50 - 7.00 K/[facility] LAB HEMETOLOGY METHOD 03/06/2025 4:41 PM [facility] Lymphocytes Absolute 3.91 1.00 - 5.00 K/[facility] LAB HEMETOLOGY METHOD 03/06/2025 4:41 PM [facility] Monocytes Absolute 1.17(H) 0.20 - 1.00 K/mcL LAB HEMETOLOGY METHOD 03/06/2025 4:41 PM EDT [facility] Eosinophils Absolute 0.21 0.00 - 0.50 K/mcL LAB HEMETOLOGY METHOD 03/06/2025 4:41 PM EDT [facility] Basophils Absolute 0.06 0.00 - 0.20 K/[facility] LAB HEMETOLOGY METHOD 03/06/2025 4:41 PM EDT [facility] Immature Granulocytes Absolute 0.04(H) 0.00 - 0.03 K/[facility] LAB HEMETOLOGY METHOD 03/06/2025 4:41 PM EDT [facility] Blood Venous blood specimen / Unknown Venipuncture / Unknown 03/06/2025 2:12 PM EDT 03/06/2025 2:12 PM EDT us Akanksha Florian MD LAB BLOOD ORDERABLES Final Resul t Performing Organization Address [facility]/ZIP Co de Phone Number [facility] [address] [place] [address], [place] [phone] * (ABNORMAL) Vitamin D 25 hydroxy (03/06/2025 2:12 PM EDT) Vit D, 25-Hydroxy 109.2(H) 30.0 - 80.0 ng/mL LAB CHEMISTRY METHOD 03/06/2025 7:39 PM EDT [facility] Blood Venous blood specimen / Unknown Venipuncture / Unknown 03/06/2025 2:12 PM EDT 03/06/2025 2:12 PM EDT us Akanksha Florian MD LAB BLOOD ORDERABLES Final Resul t Performing Organization Address City/[facility]/ZIP Co de Phone Number [facility] [address] [place] [address], [place] [phone] * (ABNORMAL) Vitamin B12 (03/06/2025 2:12 PM EDT) Vitamin B-12 >2,000(H) 250 - 900 pcg/mL LAB CHEMISTRY METHOD 03/06/2025 5:18 PM [facility] Blood Venous blood specimen / Unknown Venipuncture / Unknown 03/06/2025 2:12 PM EDT 03/06/2025 2:12 PM EDT us Akanksha Florian MD LAB BLOOD ORDERABLES Final Resul t [facility] [address] [place] [address], * (ABNORMAL) Comprehensive metabolic panel (03/06/2025 2:12 PM EDT) Sodium 139 133 - 145 mmol/L LAB CHEMISTRY METHOD 03/06/2025 7:20 PM [facility] Potassium 2.8(LL) 3.5 - 5.5 mmol/L LAB CHEMISTRY METHOD 03/06/2025 7:20 PM [facility] Chloride 97 96 - 110 mmol/L LAB CHEMISTRY METHOD 03/06/2025 7:20 PM [facility] CO2 32 21 - 32 mmol/L LAB CHEMISTRY METHOD 03/06/2025 7:20 PM [facility] Anion Gap 10 3 - 11 LAB CHEMISTRY METHOD 03/06/2025 7:20 PM [facility] Glucose 99 70 - 100 mg/dL LAB CHEMISTRY METHOD 03/06/2025 7:20 PM [facility] BUN 18 5 - 25 mg/dL LAB CHEMISTRY METHOD 03/06/2025 7:20 PM [facility] Creatinine 0.80 0.50 - 1.10 mg/dL LAB CHEMISTRY METHOD 03/06/2025 7:20 PM [facility] eGFR 75 >=60 mL/min/1. 73m2 LAB CHEMISTRY METHOD 03/06/2025 7:20 PM [facility] Comment:Calculation based on the Chronic Kidney Disease Epidemiology Collaboration (CKD-EPI) equation refit without adjustment for race. BUN/Creatinine Ratio 22.5 LAB CHEMISTRY METHOD 03/06/2025 7:20 PM EDT [facility] Calcium 9.4 8.5 - 10.5 mg/dL LAB CHEMISTRY METHOD 03/06/2025 7:20 PM T [facility] AST (SGOT) 53(H) 10 - 42 unit/L LAB CHEMISTRY METHOD 03/06/2025 7:20 PM T [facility] ALT (SGPT) 78(H) 10 - 60 unit/L LAB CHEMISTRY METHOD 03/06/2025 7:20 PM T [facility] Alkaline Phosphatase 133(H) 42 - 121 unit/L LAB CHEMISTRY METHOD 03/06/2025 7:20 PM EDT [facility] Total Protein 6.7 6.0 - 8.0 g/dL LAB CHEMISTRY METHOD 03/06/2025 7:20 PM EDT [facility] Albumin 3.4 3.2 - 5.0 g/dL LAB CHEMISTRY METHOD 03/06/2025 7:20 PM [facility] Total Bilirubin 0.7 0.0 - 1.4 mg/dL LAB CHEMISTRY METHOD 03/06/2025 7:20 PM T [facility] Blood Venous blood specimen / Unknown Venipuncture / Unknown 03/06/2025 2:12 PM EDT 03/06/2025 2:12 PM EDT us Akanksha Florian MD LAB BLOOD ORDERABLES Final Resul t [facility] [address] [place] [address], * DXA BONE DENSITY STUDY 1+ SITS AXIAL SKEL (05/02/2021 9:44 AM EDT) Anatomical Region Laterality Modality Bone Densitometr y 11/06/2020 5:57 PM EST Narrative 05/02/2021 5:08 PM EDT Clinical history: osteoporosis Scans of the lumbar spine and hips were performed on a [employer] fan beam bone densitometer. Bone mineral density measurements [...] >20% for major osteoporotic fracture PLEASE NOTE: W.H.O. classification is based on lowest measured density at the spine, femoral neck, or total hip.This classification has prognostic significance when applied to post menopausal women and older men. 1) The World Health Organization defines low BMD as follows: T-score Normal at or > -1 Osteopenia < -1 and > -2.5 Osteoporosis at or < -2.5 without fractures Established osteoporosis < -2.5 with fractures Procedure Note Adilene Phoenix MD - 11/05/2022 Clinical history: osteoporosis Scans of the lumbar spine and hips were performed on a [employer] beam bone densitometer. 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
--- OUTSIDE RECORDS SUMMARY | 2025-05-08 12:57 | XMS_ITS | Clinical Summary ---
Author Organization [facility] Address [address] [place] [address] Care Team Providers Care Seaweed Harvester Name Role Phone Akanksha Florian MD Primary Care Provider [phone] Allergies Active Allergy Reactions Criticality Noted Date [...] Units total) by mouth daily. 0 Active Blair-3 Fatty Acids (OMEGA 3 PO) Take by [...] Overview: Overview: Colonoscopy 03/10/2017: Diminutive tubular adenomas 3, next [...] past Sensorineural hearing loss 12/02/2005 Overview: [place]: [facility] [place] Overview: O update Pure hypercholesterolemia 12/02/2005 [...] 59 03/30/2024 10:39 AM EDT Temperature 36.7 C (98 F) 03/30/2024 10:39 AM EDT Respiratory Rate - [...] 2024 06/28/2021, 01/01/2021, 12/11/2020 Influenza Vaccine (#1) 2025 , 08/25/2019, 09/01/2018, Additional history exists Pneumococcal Vaccine Completed 01/18/2016, 02/26/20 10 Shingrix-Zoster Vaccine Completed 08/01/2020, 03/01 Hepatitis B Vaccines Aged Out No long er eligible based on patient's age to complete this topic RSV Ped < 20 months Aged Out No longe r eligible based on patient's age to complete this topic Care Teams Seaweed Harvester Relationship Specialty Start Date End Date Akanksha Florian MD [address] [place] [address] PCP - General Internal Medicine 03/30/24
== END 2025-05-08 12:19 | disposition home or self-care (01) ==
LOC: HO.HSM 12:06
PROVIDERS: PCP Internal Medicine; Visit Provider Psychiatry & Neurology Neurology
DX: G30.1 Alzheimer's disease with late onset (principal); F02.A0 Dementia in other diseases classified elsewhere, mild, without behavioral disturbance, psychotic disturbance, mood disturbance, and anxiety; H91.93 Unspecified hearing loss, bilateral
CPT/HCPCS: 99214

== ENCOUNTER → 2025-05-08 12:06 | Outpatient (BNVA) | payer MEDICARE, SELFPAY | PROVIDERS: PCP Internal Medicine; Visit Provider Psychiatry & Neurology Neurology | DX: G30.1 Alzheimer's disease with late onset (principal); F02.80 Dementia in other diseases classified elsewhere, unspecified severity, without behavioral disturbance, psychotic disturbance, mood disturbance, and anxiety; H91.93 Unspecified hearing loss, bilateral | CPT/HCPCS: 99212 ==

== ENCOUNTER 2025-06-15 12:58 | Outpatient (AMB) | payer MEDICARE, SELFPAY ==
--- OUTSIDE RECORDS SUMMARY | 2025-06-15 13:00 | XMS_ITS | Clinical Summary ---
Author Organization [facility] Address [address] [place] [address] Phone Care Team Providers Care Unified Communications Architect Name Role Phone Akanksha Florian MD Primary Care Provider [phone] Allergies Active Allergy Reactions Criticality Noted Date [...] needed for moderate pain. 90 capsule 1 02/01/2025 Active rosuvastatin (Crestor) 40 mg tablet Take 1 tablet (40 mg total) by mouth 1 (one) time each day. 90 tablet 1 03/12/2025 Active donepeziL (ARICEPT) 10 mg tablet Take 1 tablet (10 mg total) by mouth at bedtime. 02/21/2025 Active sertraline (ZOLOFT) 25 mg tablet Take 1 tablet (25 mg total) by mouth 1 (one) time each day. 02/21/2025 Active levothyroxine (SYNTHROID, LEVOTHROID) 50 mcg tablet Take 1 tablet (50 mcg total) by mouth 1 (one) time each day before breakfast. 90 tablet 1 03/28/2025 Active memantine (NAMENDA) 10 mg tablet Take 1 tablet (10 mg total) by mouth 2 (two) times a day. 05/08/2025 Active gabapentin (NEURONTIN) 100 mg capsule Take 1 capsule (100 mg total) by mouth 2 (two) times a day. Active amLODIPine (NORVASC) 5 mg tablet Take 1 tablet (5 mg total) by mouth 1 (one) time each day. 90 tablet 1 05/09/2025 Active Active Problems Problem Noted Date Diagnosed Date Primary osteoarthritis of both feet 01/14/2018 Primary osteoarthritis of both hands 01/14/2018 Hypothyroid 10/15/2017 Assessment & Plan (11/08/2024 5:52 PM EST): Orders: Thyroid stimulating hormone with reflex to free t4 and free t3; Future Malignant neoplasm of transv erse colon ([facility]/HCC V24, CMS/HCC V28) 12/10/2015 Overview (01/04/2024): Overview: Colonoscopy and biopsy 12/10/2015. Adenocarcinoma, low-grade. (Desires small- volume bowel prep. Difficult sigmoid colon, consider monitored anesthesia care at the hospital.) Colonoscopy 03/10/2017@[facility]: Diminutive tubular adenomas 3, next colonoscopy 3 [...] Sensorineural hearing loss 12/02/2005 Overview (01/04/2024): Overview: [facility] [place] update Overview: [facility] update Thyroiditis 12/02/2005 Encounters Date Type Department Care Team Description 05/16/2025 10:30 AM EDT Procedure visit Adult [address] [phone] Ry Bates PA Impacted cerumen of left ear (Primary Dx) 05/09/2025 1:30 PM EDT Office Visit Adult [address] [phone] Akanksha Florian MD Bilateral impacted cerumen (Primary Dx); Essential hypertension; Pure hypercholesterolemia; Acquired hypothyroidism; Primary osteoarthritis of both feet; Primary osteoarthritis of both hands 05/09/2025 Telephone Adult [address] [phone] Akanksha Florian MD 03/28/2025 10:00 AM EDT Office Visit [address] [phone] Nevin Bahena PA Hypokalemia (Primary Dx); Essential hypertension; Moderate late onset Alzheimer's dementia without behavioral disturbance, psychotic disturbance, mood disturbance, or anxiety (CMS/HCC V24, CMS/HCC V28) from Last 3 Months Immunizations Name Administration Dates Next Due Pfizer SARS-CoV-2 COVID-19, mRNA, LNP-S, preservative free 06/28/2021,01/01/2021,12/11/2020 Surgical History Surgery Date Site/Laterality Comments PARTIAL HYSTERECTOMY 1987 PROCEDURE: MN SUPRACERVICAL ABDL HYSTER W/WO RMVL TUBE OVARY; [...] COLONOSCOPY 03/10/2017 PROCEDURE: HISTORICAL COLONOSCOPY; COMMENT: Dr. [email or web address]; diminutive tubular adenoma 3, next colonoscopy 3 years. TOTAL KNEE ARTHROPLASTY Left PROCEDURE: MN ARTHRP KNE CONDYLE&PLATU MEDIAL&LAT COMPARTMENTS OTHER SURGICAL HISTORY Right PROCEDURE: MN ARTHRP ACETBLR/PROX FEM PROSTC AGRFT/ALGRFT BREAST BIOPSY 1989 Bilateral PROCEDURE: BX BREAST; PERC NEEDLE CORE W/IMAG GUID; COMMENT: x6-7 BREAST SURGERY 1989 Bilateral PROCEDURE: MN UNLISTED PROCEDURE BREAST BOWEL RESECTION 01/16/2016 PROCEDURE: HISTORICAL BOWEL RESECTION; COMMENT: right hemicolectomy COLONOSCOPY 05/10/2020 PROCEDURE: HISTORICAL COLONOSCOPY; COMMENT: Diverticulosis, otherwise negative/incomplete to the sigmoid colon. UPPER GASTROINTESTINAL ENDOSCOPY 05/10/2020 PROCEDURE: MN UPPER GI ENDOSCOPY PERFORMED; COMMENT: Rico esophagitis, [...] HE ALTHY; 1 MESOTHELIOMA Father (Age 92) [place]-CHOL Maternal Grandfather old age Maternal Grandmother old age -GOITER Mother (Age 91) stroke-DM, ARTHRITIS, goiter Other m cousins 30s 40s Paternal Grandfather old age Paternal Grandmother old age Sister 1 Alive 3 sisters 3 Cho lesterol and 1 DM Sister 2 Social History Tobacco Use Types Packs/Day Years Used Date Smoking Tobacco: Former Cigarettes Q uit: 11/01/1987 Smokeless Tobacco: Never Alcohol Use Standard Drinks/Week Comments Yes 0 (1 standard drink = 0.6 oz pur e alcohol) Housing Instability Answer Date Recorde d Are you worried that in the next 2 months you may not have stable housing? No 05/15/2025 Food Access & Nutrition Answer Date Rec orded Do you have access to a vari ety of food including fruits and vegetables? Yes 05/15/2025 Access to Healthcare Answer Date Record ed Within the last 3 months, ho w many times did you visit the emergency department for your medical care? 0 05/15/2025 Health Literacy Answer Date Recorded How often do you need to hav e someone help you when you read instructions, pamphlets, or other written material from your doctor or pharmacy? Sometimes 05/15/2025 Caregiver: How often do you need to have someone help you when you read instructions, pamphlets, or other written material from your doctor or pharmacy? Not on file 05/15/2025 Financial Risk Answer Date Recorded How hard is it for you to pa y for the very basics like food, housing, medical care, and air conditioning / heating? Not very hard 05/15/2025 Transportation Answer Date Recorded Has the lack of transportati on kept you from meetings, work, or from getting things needed for daily living? No Has the lack of transportati on kept you from medical appointments or from getting medications? No 05/15/2025 Social Isolation Answer Date Recorded How often do you feel lonely or isolated from th ose around you? Rarely 05/15/2025 Food Risk Answer Date Recorded Within the past 12 months we worried whether our food would run out before we got money to buy more. Never true 05/15/2025 Within the past 12 months th e food we bought just didn't last and we didn't have money to get more. Never true 05/15/2025 Dependent Care Answer Date Recorded Do you need help finding or paying for care for your loved ones. For example, director child or elderly care for an older adult? No 05/15/2025 Education Answer Date Recorded Do you think completing more education or training, like finishing a GED, going to college, or learning a trade, would be helpful for you? No 05/15/2025 Employment and Income Answer Date Recor ded During the last four weeks, have you been actively looking for work? No 05/15/2025 Living Situation Answer Date Recorded What is your living situation? 0 05/15/2025 Comments No Sex and Gender Information Value Date Recorded Sex Assigned at Not on file Legal Sex Female 9:37 AM EST Gender Identity Not on file Sexual Orientation Not on file Obstetrics History Last Filed Vital Signs Vital Sign Reading Time Taken Comments Blood Pressure 118/68 05/16/2025 10:36 AM EDT Pulse 70 05/16/2025 10:36 AM EDT Temperature 35.8 C (96.4 F) 05/16/2025 10:36 AM EDT Respiratory Rate 18 05/16/2025 10:36 AM EDT Oxygen Saturation 96% 05/09/2025 1:36 PM EDT Inhaled Oxygen Concentration - - Weight 72.6 kg (160 lb) 05/16/2025 10:36 AM EDT Height 157.5 cm (5' 2 ) 05/16/2025 10:36 AM EDT Body Mass Index 29.26 05/16/2025 10:36 AM EDT Plan of Treatment Upcoming Encounters Date Type Department Care Team (Late st Contact Info) Description 08/21/2025 1:00 PM EDT Office Visit Adult Medicine [address] [phone] Akanksha Florian MD [address] [place] [id number] Health Maintenance Due Date Last Done Comments Colorectal Cancer Screening: Colonoscopy 10/07/2022 Falls Risk Assessment 10/07/2022 Medicare Annual Wellness Visit 10/07/2022 DTaP,Tdap,and Td Vaccines (4 - Td or Tdap) 12/20/2022 12/20/2012, 10/07/2006, 11/01/1996 COVID-19 Vaccine ( season) 2024 07/16/2022, 04/15/2022, 06/28/2021, Additional history exists Influenza Vaccine (#1) 2025 , 07/02/2020, 08/25/2019, Additional history exists Hypertension/CHF/CAD Annual BMP Blood Test 03/28/2026 03/28/2025, 03/15/2025, 03/06/2025, Additional history exists Social Influencers of Health Screening 05/15/2026 05/15/2025 Cholesterol Screening (Lipid Panel) 03/06/2030 03/06/2025, 03/09/2024 Osteoporosis Screening (Bone Density Screening) 05/02/2031 05/02/2021, 09/02/2017 Pneumococcal Vaccine: 50+ Years Completed 01/18/2016, 01/17/2016, 02/25/2010 Zoster Vaccines Completed 08/01/2020, 05/02, 03/01/2020, Additional history exists RSV Immunization Adult Patients Completed 10/02/2023 Depression Screening Completed 05/03/2025 HIB Vaccines Aged Out No longer eligi [...] PANEL Routine 03/15/2025 12:51 PM EDT Hypokalemia LIPID PANEL WITH REFLEX TO DIRECT LDL Routine 03/06/2025 2:12 PM EDT Essential hypertension DXA BONE DENSITY STUDY 1+ SITS AXIAL SKEL Routine 05/02/2021 9:44 AM EDT Age-related osteoporosis without current pathological fracture from Last 3 Months or Most Recently Relevant to Health Maintenance Results * (ABNORMAL) Basic metabolic panel (03/28/2025 11:48 AM EDT) Only the most recent of2 resultswithin the time period is included. Sodium 139 133 - 145 mmol/L LAB CHEMISTRY METHOD 03/28/2025 6:12 PM EDT [facility] Potassium 3.9 3.5 - 5.5 mmol/L LAB CHEMISTRY METHOD 03/28/2025 6:12 PM EDT [facility] Chloride 105 96 - 110 mmol/L LAB CHEMISTRY METHOD 03/28/2025 6:12 PM EDT [facility] CO2 29 21 - 32 mmol/L LAB CHEMISTRY METHOD 03/28/2025 6:12 PM [facility] Anion Gap 5 3 - 11 LAB CHEMISTRY METHOD 03/28/2025 6:12 PM [facility] Glucose 106(H) 70 - 100 mg/dL LAB CHEMISTRY METHOD 03/28/2025 6:12 PM T [facility] BUN 13 5 - 25 mg/dL LAB CHEMISTRY METHOD 03/28/2025 6:12 PM [facility] Creatinine 0.69 0.50 - 1.10 mg/dL LAB CHEMISTRY METHOD [facility]/28[facility] eGFR 88 >=60 mL/min/1. 73m2 LAB CHEMISTRY METHOD 03/28/2025 6:12 PM T [facility] Comment:Calculation based on the Chronic Kidney Disease Epidemiology Collaboration (CKD-EPI) equation refit without adjustment for race. BUN/Creatinine Ratio 18.8 LAB CHEMISTRY METHOD 03/28/2025 6:12 PM [facility] Calcium 9.9 8.5 - 10.5 mg/dL LAB CHEMISTRY METHOD 03/28/2025 6:12 PM [facility] Blood Venous blood specimen / Unknown Venipuncture / Unknown 03/28/2025 11:48 AM EDT 03/28/2025 11:48 AM EDT us Nevin BUCKLEY LAB BLOOD ORDERABLES Final Res ult [facility] [address] [place] [address], * (ABNORMAL) Lipid panel with reflex to direct LDL (03/06/2025 2:12 PM EDT) Cholesterol 129 0 - 200 mg/dL LAB CHEMISTRY METHOD 03/06/2025 4:55 PM EDT [facility] Triglycerides 227(H) 0 - 150 mg/dL LAB CHEMISTRY METHOD 03/06/2025 4:55 PM EDT [facility] HDL 49 >=40 mg/dL LAB CHEMISTRY METHOD 03/06/2025 4:55 PM EDT [facility] LDL Calculated 35 0 - 100 mg/dL LAB CHEMISTRY METHOD 03/06/2025 4:55 PM EDT [facility] VLDL Cholesterol Inderjit 45.4 mg/dL LAB CHEMISTRY METHOD 03/06/2025 4:55 PM EDT [facility] Non HDL Chol. (LDL+VLDL) 80 <145 mg/dL LAB CHEMISTRY METHOD 03/06/2025 4:55 PM EDT [facility] Chol/HDL Ratio 2.6 0.0 - 4.4 LAB CHEMISTRY METHOD 03/06/2025 4:55 PM EDT [facility] Blood Venous blood specimen / Unknown Venipuncture / Unknown 03/06/2025 2:12 PM EDT 03/06/2025 2:12 PM EDT us Akanksha Florian MD LAB BLOOD ORDERABLES Final Resul t [facility] [address] [place] [address], * DXA BONE DENSITY STUDY 1+ SITS AXIAL SKEL (05/02/2021 9:44 AM EDT) Anatomical Region Laterality Modality Bone Densitometr y 11/06/2020 5:57 PM EST Narrative 05/02/2021 5:08 PM EDT Clinical history: osteoporosis Scans of the lumbar spine and hips were performed on a [employer] fan beam bone densitometer. Bone mineral density [...] spine and hips were performed on a [employer] beam bone densitometer. Bone mineral density measurements [...] Documents on File Type Date Recorded Patient Resource Teacher Expl anation Health Care Decision (hx) 01/21/2016 [...] (hx) 01/16/2016 AD APPIAH DIRECTIVE Care Teams Unified Communications Architect Relationship Specialty Start Date End Date Akanksha Florian MD [address] [place] [id number] PCP - General 03/30/24
--- OUTSIDE RECORDS SUMMARY | 2025-06-15 13:00 | XMS_ITS | Clinical Summary ---
Author Organization [facility] Address [address] [place] [address] Care Team Providers Care Taxi Driver Supervisor Name Role Phone Akanksha Florian MD Primary Care Provider [phone] Allergies Active Allergy Reactions Criticality Noted Date [...] Units total) by mouth daily. 0 Active [place]-3 Fatty Acids (OMEGA 3 PO) Take by [...] past Sensorineural hearing loss 12/02/2005 Overview: [place] [facility]: [place] update Pure hypercholesterolemia 12/02/2005 [...] age to complete this topic Care Teams Taxi Driver Supervisor Relationship Specialty Start Date End Date Akanksha Florian MD [address] [place] [address] PCP - General Internal Medicine 03/30/24
[2025-06-15 13:22] VITALS: BP 134/66; PULSE 70; TEMP 37.1; O2SAT 96; BMI 30.6
--- NOTE | 2025-06-15 13:22 | AM.OFFWIN_ITS ---
Intake Vital Signs 06/15/25 13:22 Height 5 ft 2 in Weight 167 lb 2 oz BMI 30.6 BP 134/66 Blood Pressure Location Lt brachial Position Sitting Pulse 70 Pulse Source Pulse Oximeter Temp 98.8 F Temp Source Oral Pulse Oximetry (%) 96 Oxygen Delivery Method Room Air Intake Visit Reasons: EP Ear wax removal Patient Tobacco Use Status: Former Tobacco user [employer] Required: No Is last menstrual period known: No Post menopausal: Yes Patient : No Allergies codeine Allergy (Verified 06/15/25 13:27) Unknown nickel Allergy (Verified 06/15/25 13:27) Unknown sulfur dioxide Allergy (Verified 06/15/25 13:27) Unknown Do you need a note to return to daycare/school/sports/work: No HPI HPI Comments History of Present Illness Details History - The patient is an 80-year-old female p resenting with concern for ear wax ac cumulation. - She has been managing the condition fo r a month using ear drops, which have successfully resolved the issue. - she has decreased hearing and is going [place] next week for hearing aid eval for a new pair and wanted to be sure no wax was in the way to prevent the evaluation. Physical Exam Physical Exam General: Cooperative, healthy appearing, comfortable, no acute distress and well developed Orientation: Patient oriented x3 Limitations: No limitations Head: Normal to inspection Ears: External ears normal bilaterally, TM's clear bilaterally with no impacted cerumen Face and sinus: Normal facial exam Neck: Normal visual inspection and Yes full ROM Respiratory: Normal respiratory effort and able to speak in complete sentences. Skin: No rashes or lesions noted Neuro: Patient oriented x3 Extremities: normal to inspection [facility] Medical History (Updated 05/08/25 @ 12:15 by Sherwin Reis MD) Arthritis Hypertension GERD (gastroesophageal reflux disease) Hypothyroidism Alzheimer's dementia Social History Patient Tobacco Use Status: Former Tobacco user Patient : No Review of Systems Const All systems reviewed & are unremarkable except as noted in HPI and below Physical Exam Vital Signs: Last Vital Signs Temp 98.8 F 06/15/25 13:22 Pulse 70 06/15/25 13:22 BP 134/66 06/15/25 13:22 Pulse Ox 96 06/15/25 13:22 Oxygen Delivery Method Room Air 06/15/25 13:22 BMI result Body Mass Index 30.6 Assessment & Plan Assessment & Plan (1) Decreased hearing of both ears: Code(s): H91.93 - Unspecified hearing loss, bilateral Plan: Plan Patient was informed and verbally consented to the use of an ambient scribe for clinic note documentation during this visit. - Follow up with [facility] for your hearing aids next week, your ear canals are clear. - No further intervention required as the ear canals are clear of wax. - Continue monitoring for any recurrence of symptoms. - Can use debrox drops to maintain clear ear canals Coding Level of Care Code New Pt Level 2 (84688) Diagnoses Decreased hearing of both ears H91.93
== END 2025-06-15 13:49 | disposition home or self-care (01) ==
PROVIDERS: Visit Provider Physician Assistant
DX: H91.93 Unspecified hearing loss, bilateral (principal)

== ENCOUNTER → 2025-06-15 12:58 | Outpatient (BNVA) | payer MEDICARE, SELFPAY | PROVIDERS: Visit Provider Physician Assistant | DX: H91.93 Unspecified hearing loss, bilateral (principal) | CPT/HCPCS: 99202 ==